=== PATIENT | male | born 1985 | race Caucasian/White ===

== ENCOUNTER 2017-03-20 12:10 | Emergency (ER) | payer OTHER | END 2017-03-20 13:00 | disposition home or self-care (01) | LOC: ER1 12:10 | DX: T22.112A Burn of first degree of left forearm, initial encounter (principal); T22.111A Burn of first degree of right forearm, initial encounter; T20.03XA Burn of unspecified degree of chin, initial encounter; F17.210 Nicotine dependence, cigarettes, uncomplicated; X02.0XXA Exposure to flames in controlled fire in building or structure, initial encounter; Y93.89 Activity, other specified; Y92.69 Other specified industrial and construction area as the place of occurrence of the external cause; Y99.0 Civilian activity done for income or pay | CPT/HCPCS: 99283 ==